=== PATIENT | female | born 1950 | race Caucasian/White ===

== ENCOUNTER → 2018-01-25 | Outpatient (CLI) | payer MEDICARE, BC ==
--- NOTE | 2018-01-25 19:09 | Diagnostic Imaging Report ---
EXAM: VENTILATION PERFUSION LUNG SCAN INDICATION: 67 F with swelling and pain in lower extremities; history of stroke. COMPARISON: None DISCUSSION: Xenon-133 gas 20 mCi was administered via inhalation. Dynamic images of the lungs in the posterior projection were obtained through single breath and washout phases. Distribution of tracer activity is minimally irregular throughout the lungs. Washout is minimally delayed without evidence of air trapping. Perfusion images of the lungs in multiple projections were obtained following intravenous administration of 6.0 mCi of Tc-99m MAA. Distribution of tracer appears physiologic throughout the lungs. There are no segmental perfusion defects of any size. The contours of the lungs are well demarcated. The cardiac silhouette is unremarkable. IMPRESSION: 1. Scan findings represent a VERY LOW probability for acute pulmonary embolic disease based on the PIOPED II criteria. 2. Scan findings are compatible with mild obstructive lung disease. Signed by: Dr. Marija De Leon M.D. on 01/25/2018 7:05 PM
== END ==
LOC: NM 10:22
PROVIDERS: ATTEND Family Medicine
DX: I26.99 Other pulmonary embolism without acute cor pulmonale (principal)
CPT/HCPCS: 78582; A9540; A9558

== ENCOUNTER 2019-06-04 15:45 | Observation (INO) | payer MEDICARE, BC ==
[~2019-06-04] VITALS: Ht 149.9 cm; Wt 56.9 kg
--- OUTSIDE RECORDS SUMMARY | 2019-06-04 15:48 | XMS REPORT ---
Author Author [facility] Address Unknown Phone Unavailable Care Team Providers Care Director Of Resource Development Name Role Phone Hui BERRY Unavailable Unavailable Problems This patient has no known problems. Allergies, Adverse Reactions, Alerts This patient has no known allergies or adverse reactions. Medications This patient has no known medications. Results Test Description Test Time Test Comments Text Results Atomic Results Result Comments VQ LUNG SCAN VENT PERFUSION [place] [id number] Patient Name: GLEN MCCARTHY MR #: [id number] : 1950 Age/Sex: 67/F Req #: [id number] [facility] Physician: Ordered by: ROHIT BERRY MD Report #: [id number] Location: [place] Room/Bed: Procedure: [id number] NM/VQ LUNG SCAN VENT PERFUSION Exam Date: Exam Time: REPORT STATUS: Signed EXAM: VENTILATION PERFUSION LUNG SCAN INDICATION: 67 F with swelling and pain in lower extremities; history of stroke. COMPARISON: None DISCUSSION: Xenon-133 gas 20 mCi was administered via inhalation. Dynamic images of the lungs in the posterior projection were obtained through single breath and washout phases. Distribution of tracer activity is minimally irregular throughout the lungs. Washout is minimally delayed without evidence of air trapping. Perfusion images of the lungs in multiple projections were obtained following intravenous administration of 6.0 mCi of Tc-99m MAA. Distribution of tracer appears physiologic throughout the lungs. There are no segmental perfusion defects of any size. The contours of the lungs are well demarcated. The cardiac silhouette is unremarkable. IMPRESSION: 1. Scan findings represent a VERY LOW probability for acute pulmonary embolic disease based on the PIOPED II criteria. 2. Scan findings are compatible with mild obstructive lung disease. Signed by: Dr. Dustin Solorio M.D. on 01/25/2018 7:05 PM Dictated By: DUSTIN SOLORIO MD 04 Transcribed By: JOHNNY on 01/25/181904 COPY TO: ROHIT BERRY MD
[2019-06-04] MEDS ORDERED: ASPIRIN 81 MG CHEW TAB PO ONE ×2 (16:15→19:00)
[2019-06-04 16:56] LABS: BASOPHILS % 0.6 % (0.0-1.0); EOSINOPHILS # (AUTO) 0.2 (0.0-0.4); EOSINOPHILS % 3.6 % (0.0-6.0); HEMATOCRIT 40.7 % (34.2-44.1); HEMOGLOBIN 13.5 g/dL (12.0-16.0); LYMPHOCYTES # (AUTO) 1.7 (1.0-3.2); LYMPHOCYTES % 31.2 % (18.0-39.1); MEAN CORPUSCULAR HEMOGLOBIN 30.1 pg (28-32); MEAN CORPUSCULAR HGB CONC 33.2 g/dL (31-35); MEAN CORPUSCULAR VOLUME 90.6 fL (81-99); MONOCYTES # (AUTO) 0.5 (0.2-0.8); MONOCYTES % 9.2 % (4.4-11.3); NEUTROPHILS # (AUTO) 2.9 (2.1-6.9); PLATELET COUNT 194 x10e3/uL (140-360); RED BLOOD COUNT 4.49 x10e6/uL (3.6-5.1); RED CELL DISTRIBUTION WIDTH 13.2 % (11.7-14.4)
[2019-06-04 17:04] LABS: INR 1.08; PROTHROMBIN TIME 14.5 seconds (11.9-14.5)
[2019-06-04 17:05] LABS: PARTIAL THROMBOPLASTIN TIME 41.7 seconds (23.8-35.5)
[2019-06-04 17:14] LABS: ALANINE AMINOTRANSFERASE 23 IU/L (0-55); ALBUMIN 4.3 g/dL (3.5-5.0); ALBUMIN/GLOBULIN RATIO 1.4 (0.8-2.0); ALKALINE PHOSPHATASE 60 IU/L (40-150); ANION GAP 14.5 mmol/L (8-16); BLOOD UREA NITROGEN 27 mg/dL (7-26); BUN/CREATININE RATIO 23 (6-25); CALCIUM 9.9 mg/dL (8.4-10.2); CARBON DIOXIDE 27 mmol/L (22-29); CHLORIDE 108 mmol/L (98-107); CREATINE KINASE 309 IU/L (29-168); CREATININE, SERUM 1.19 mg/dL (0.57-1.11); EST GLOMERULAR FILTRATION RATE 45 ML/MIN (60-); GLUCOSE 107 mg/dL (74-118); POTASSIUM 3.5 mmol/L (3.5-5.1); SODIUM 146 mmol/L (136-145)
--- NOTE | 2019-06-04 17:18 | Diagnostic Imaging Report ---
EXAMINATION: CHEST SINGLE (PORTABLE) INDICATION: ^ERMD ORDER ^[id number] ^1600 ^Y COMPARISON: None FINDINGS: AP view TUBES and LINES: None. LUNGS: Lungs are well inflated. Lungs are clear. There is no evidence of pneumonia or pulmonary edema. PLEURA: No pleural effusion or pneumothorax. HEART AND MEDIASTINUM: The cardiomediastinal silhouette is unremarkable. BONES AND SOFT TISSUES: No acute osseous lesion. Soft tissues are unremarkable. UPPER ABDOMEN: No free air under the diaphragm. IMPRESSION: No acute thoracic abnormality. Signed by: Dr. Justo Hall MD on 06/04/2019 5:15 PM
[2019-06-04] MEDS ORDERED: SODIUM CHLORIDE 0.9% 1000ML 1,000 ML IV SCH (17:45)
[2019-06-04] MEDS ORDERED: DEXTROSE 50% SYRINGE 50 ML IV PRN (19:00)
[2019-06-04 19:56] LABS: CREATINE KINASE 257 IU/L (29-168)
[2019-06-04] MEDS: INSULIN REGULAR, HUMAN 100 UNIT/1 ML 3ML VIAL SQ SCH (21:00)
[2019-06-04 21:20] VITALS: BP 130/60
--- NOTE | 2019-06-04 21:20 | NUR ---
patient is a new admit that arrived via stretcher. patient is awake and talking. patient has been assisted into the bed. bed is in the lowest position and call card is within reach. will continue to monitor patient.
[2019-06-04 21:30] VITALS: BP 130/60
[2019-06-05] VITALS (7 sets, daily range): BP systolic 106–154; BP diastolic 56–79
[2019-06-05 04:36] LABS: CREATINE KINASE 236 IU/L (29-168)
[2019-06-05 04:41] LABS: CHOL/HDL RATIO 2.6 (3.0-3.6)
--- NOTE | 2019-06-05 06:57 | NUR ---
report given to day nurse. patient is resting comfortably in bed. bed is in lowest position and call card is within reach.
[2019-06-05] MEDS ORDERED: TEMAZEPAM15 MG PO (07:20)
[2019-06-05] MEDS ORDERED: TOPROL XL100 MG PO (07:20)
[2019-06-05] MEDS ORDERED: OMEPRAZOLE10 MG PO (07:20)
[2019-06-05] MEDS ORDERED: eliquis PO (07:20)
[2019-06-05] MEDS ORDERED: XANAX0.5 MG PO (07:20)
[2019-06-05] MEDS: INSULIN REGULAR, HUMAN 100 UNIT/1 ML 3ML VIAL SQ SCH ×4 (07:30→21:00)
--- NOTE | 2019-06-05 08:00 | NUR ---
Pt in bed with eyes open aox4 and able to verbalize needs. Denies any pain at this time. Received orders for Stress test in the morning. Denies any chest pain at this time.
--- NOTE | 2019-06-05 08:25 | Consultation ---
DATE OF CONSULTATION: 06/05/2019 Cardiology Consultation REQUESTING PHYSICIAN: Dr. Bates. REASON FOR CONSULTATION: Chest pain and arrhythmia. HISTORY OF PRESENT ILLNESS: Ms. Anderson is a 68-year-old with a pertinent past medical history of hypertension, hyperlipidemia, diabetes of which she is currently off medication, stroke from 2017, who reports that she sought urgent services because of "butterfly feeling in her chest for the last few days, approximately 4-5 days. She reports when she is experiencing that feeling in her chest, it takes her breath away." She also endorses some shortness of breath and MEDRANO. She does report a cardiac history stating that she used to see Dr. Ogden years ago and had been referred there for chest pain, however, that pain was usually diaphoretic in nature and heart catheterization was recommended at that time, however, she chose not to pursue that. She denies any shortness of breath at the moment, does endorse this diaphragmatic pain. Denies any fever, chills, abdominal pain, dizziness, syncope, or dysuria. REVIEW OF SYSTEMS: Negative except as mentioned above. PAST MEDICAL HISTORY: As stated above in the history of present illness. PAST SURGICAL HISTORY: Cholecystectomy, hemorrhoidectomy, melanoma removal, hysterectomy secondary to fibroids. SOCIAL HISTORY: She is retired. She is a with children and great-children. She does endorse drinking socially. Denies any illicit drug use or smoking. PHYSICAL EXAMINATION: VITAL SIGNS: Temperature 96.5, pulse 58, respiratory rate 18, blood pressure 108/59, and oxygen saturation 97% on room air. GENERAL: Alert and oriented x3, resting comfortably in bed, does not appear to be in any acute distress. NECK: Supple. No JVD noted. CARDIOVASCULAR: Regular rate and rhythm. No gallops, no murmurs. LUNGS: Clear to auscultation throughout. No wheezing. No rhonchi or crackles. ABDOMEN: Soft, nontender. Normoactive bowel sounds. LOWER EXTREMITY: 2+ pedal pulses. No edema. MEDICATIONS: Not on any cardiac medications at this time. LABORATORY DATA: On admission; WBC 5.37, hemoglobin 13.5, hematocrit 40.7, platelets 194. Sodium 146, potassium 3.5, BUN 27, creatinine 1.19. Creatine kinase 236, CK-MB 0.80, troponin less than 0.001. Triglycerides 79, cholesterol 125, LDL 61, HDL 48. Chest x-ray, no acute thoracic abnormalities. Telemetry, sinus rhythm with infrequent PVCs. IMPRESSION: 1. Symptomatic premature ventricular contractions. 2. Atypical chest pain, appears to be diaphragmatic. 3. Hypertension. 4. History of hyperlipidemia. RECOMMENDATIONS: Obtain echocardiogram. Acute coronary syndrome has been ruled out with negative cardiac enzymes. Continue to monitor on telemetry for now. Will need ischemic workup including a stress test planned for tomorrow given the above risk factors and also report of an abnormal stress test prior. Clinical dehydration noted based on lab work. Oral hydration discussed with the patient. We will continue to follow this patient closely. Thank you for this consultation, Dr. Bates. Dictated by Roxanna Fajardo, ROLANDA MD ADRIENNE MatosV/SHASHA /[id number]
[2019-06-05] MEDS ORDERED: [UNRECOGNIZED DRUG - CODE] PO (09:31)
[2019-06-05] MEDS ORDERED: SIMVASTATIN40 MG PO (09:31)
[2019-06-05] MEDS ORDERED: OMEPRAZOLE40 MG PO (09:31)
[2019-06-05] MEDS ORDERED: TEMAZEPAM 15 MG CAP PO PRN (09:45)
[2019-06-05] MEDS: ALPRAZOLAM 0.5 MG TAB PO PRN (13:36)
[2019-06-05] MEDS: METOPROLOL SUCCINATE 50 MG TAB XL PO SCH (13:42)
[2019-06-05] MEDS: OLMESARTAN 20 MG TAB PO SCH (16:42)
[2019-06-05] MEDS: APIXABAN 5 MG TABLET PO SCH (16:43)
[2019-06-05] MEDS: HYDROCHLOROTHIAZIDE 25 MG TAB PO SCH (16:43)
--- NOTE | 2019-06-05 17:00 | NUR ---
Pt in bed. AOX4 and able to verbalize needs. Denies any pain at this time. Pt has been consented for stress test.
[2019-06-05] MEDS ORDERED: ACETAMINOPHEN 325 MG TAB PO PRN (18:30)
[2019-06-05] MEDS: ACETAMINOPHEN 325 MG TAB PO PRN (19:09)
--- NOTE | 2019-06-05 19:09 | NUR ---
Beside report walking round complete. Pt resting in bed and in no apparent distress. All safety measures ensured and pt call card near. Pt encouraged to use call card for assistance.
[2019-06-05] MEDS: SIMVASTATIN 40 MG TAB PO SCH (21:17)
[2019-06-06] VITALS (8 sets, daily range): BP systolic 82–145; BP diastolic 45–74
[2019-06-06] MEDS: PANTOPRAZOLE SOD 40 MG TABEC PO SCH (05:14)
--- NOTE | 2019-06-06 07:00 | NUR ---
received am report from RN. morning rounds done, pt is awake in bed, no s/s of distress. pt is complaining of nausea. pt has been NPO since midnight , with no beta blockers and no caffeine. scheduled stress test today
[2019-06-06] MEDS: INSULIN REGULAR, HUMAN 100 UNIT/1 ML 3ML VIAL SQ SCH ×4 (07:30→21:00)
[2019-06-06] MEDS: OLMESARTAN 20 MG TAB PO SCH ×2 (08:05→17:00)
[2019-06-06] MEDS: APIXABAN 5 MG TABLET PO SCH ×2 (08:06→17:00)
[2019-06-06] MEDS: HYDROCHLOROTHIAZIDE 25 MG TAB PO SCH ×2 (08:06→17:00)
[2019-06-06] MEDS: METOPROLOL SUCCINATE 50 MG TAB XL PO SCH (08:06)
[2019-06-06] MEDS ORDERED: METOPROLOL SUCCINATE 50 MG TAB XL PO SCH (09:00)
[2019-06-06] MEDS ORDERED: ONDANSETRON HCL INJ 2MG/ML 2ML 2 MG/ML VIAL IV PRN (09:30)
--- NOTE | 2019-06-06 10:19 | NUR ---
pt is transferring to room 188, gave report to NANCY RN. pt is currently having stress test done, then will go to room 188
--- NOTE | 2019-06-06 11:30 | Progress Note ---
DATE: 06/06/2019 Cardiology Progress Note SUBJECTIVE: No major events overnight. Stress test today. OBJECTIVE: VITAL SIGNS: Temperature afebrile, pulse 55, respiratory rate 16, blood pressure 133/70, saturating 98% on room air. GENERAL: Middle-aged female, in no acute distress. CARDIOVASCULAR: Regular rate and rhythm. No murmurs, rubs, or gallops. LUNGS: Clear to auscultation bilaterally. ABDOMEN: Soft, nontender, nondistended. NEURO AND PSYCH: Alert and oriented to person, place, and time. Normal affect. INPATIENT MEDICATIONS: Reviewed. LABORATORY DATA: Reviewed. TELEMETRY DATA: Reviewed, shows normal sinus rhythm with frequent PVCs. ASSESSMENT: 1. Symptomatic premature ventricular contractions. 2. Atypical chest pain. 3. Hypertension. 4. History of stroke. 5. History of hyperlipidemia. RECOMMENDATION: Echocardiogram shows normal LV function. The patient is already ruled out for acute coronary syndrome with serial troponins. Stress test pending today. Further recommendations upon results. Thank you for this consult. We will continue to follow. MD VIVI Lutz/SHASHA /[id number]
--- NOTE | 2019-06-06 12:00 | NUR ---
pt's family member states that pt had teeth wrapped in a napkin inside a styrofoam cup. after the pt was transferred to [facility], the room was cleaned and the cup was thrown away by housekeeping. staff tried locating the trash from the room but it had already been sent to the compactor.
--- NOTE | 2019-06-06 12:18 | NUR ---
RCD PT AFTER PROCEDURE PT IS ALERT AND ORIENTED VITALS CHECKED PT RESTING ON BED FAMILY AT BED SIDE PT COMPLAINT SHE LOST THE DENTURES FROM ROOM 108 TALKED TO THE NURSE IN 108 SHE SAID SHE DONT KNOW ABOUT IT NOTIFIED CHARGE NURSE ALSO
[2019-06-06] MEDS: ALPRAZOLAM 0.5 MG TAB PO PRN ×2 (14:30→20:24)
[2019-06-06] MEDS: ACETAMINOPHEN 325 MG TAB PO PRN (14:30)
--- NOTE | 2019-06-06 18:44 | NUR ---
PT RESTING ON BED BED SIDE REPORT GIVEN TO ONCOMING NURSE
[2019-06-06] MEDS: SIMVASTATIN 40 MG TAB PO SCH (21:07)
[2019-06-06] MEDS ORDERED: SODIUM CHLORIDE 0.9% 500ML 500 ML IV ONE (23:45)
[2019-06-07] MEDS: ACETAMINOPHEN 325 MG TAB PO PRN (01:49)
[2019-06-07 03:10] VITALS: BP 96/63
[2019-06-07 04:00] VITALS: BP 97/54
--- NOTE | 2019-06-07 04:20 | NUR ---
Patient arrived to unit via bed from [facility]. Patient A&Ox3. Oriented to room and environment. Call light within reach. Will continue to monitor.
[2019-06-07] MEDS: PANTOPRAZOLE SOD 40 MG TABEC PO SCH (06:15)
[2019-06-07] MEDS: INSULIN REGULAR, HUMAN 100 UNIT/1 ML 3ML VIAL SQ SCH ×2 (07:30→11:30)
[2019-06-07 08:32] VITALS: BP 108/57
[2019-06-07] MEDS: HYDROCHLOROTHIAZIDE 25 MG TAB PO SCH (09:00)
[2019-06-07] MEDS: METOPROLOL SUCCINATE 50 MG TAB XL PO SCH ×2 (09:00→14:30)
[2019-06-07] MEDS: OLMESARTAN 20 MG TAB PO SCH (09:00)
[2019-06-07] MEDS: APIXABAN 5 MG TABLET PO SCH (09:08)
[2019-06-07 09:10] VITALS: BP 108/57
--- NOTE | 2019-06-07 10:00 | NUR ---
SPOKE WITH MD IVY REGARDING STRESS TEST RESULTS STATES STRESS TEST IS NEGATIVE WILL REASSESS BP FOR LATER TODAY, IF IMPROVES PT CAN BE CLEARED FROM CARDIAC STANDPOINT
[2019-06-07] MEDS ORDERED: SODIUM CHLORIDE 0.9% 500ML 500 ML IV ONE (11:35)
[2019-06-07 12:00] VITALS: BP 139/74
--- NOTE | 2019-06-07 12:23 | NUR ---
PAGED MD IVY FOR NEW BP READINGS AND ORDERS ON DC . AWAITING FOR CALL BACK
--- NOTE | 2019-06-07 12:26 | Myoview Stress Test ---
DATE OF STUDY: 06/05/2019 07:38:00 Stress Test - Treadmill ONLY PROCEDURE TITLE: Rest/stress single isotope SPECT imaging with pharmacologic stress and gated SPECT imaging. PROCEDURE IN DETAIL: Pharmacologic stress testing was performed with regadenoson per protocol. The heart rate was 70 beats per minute at rest and increased to 108 beats per minute during the regadenoson infusion. The rest blood pressure was 159/82 and decreased to 134/73 mmHg, which is a normal response. The resting electrocardiogram demonstrated normal sinus rhythm. There was diffuse ST-segment depression noted during stress and recovery. Myocardial perfusion imaging was performed at rest following the injection of 11 mCi of tetrofosmin. At peak pharmacologic effect, the patient was injected with 33 mCi of tetrofosmin. Gated post-stress tomographic imaging was performed. FINDINGS: The overall quality of study is fair. Left ventricular cavity is noted to be normal size on the rest and stress studies. SPECT images demonstrate homogeneous tracer distribution throughout the myocardium. Gated SPECT imaging reveals normal myocardial thickening and wall motion. The left ventricular ejection fraction is calculated to be greater than 70%. IMPRESSION: Myocardial perfusion imaging is normal. Overall, left ventricular systolic function was normal without regional wall motion abnormalities. False positive EKG pharmacologic stress test in light of normal myocardial perfusion imaging. Tona Thomas MD ABS/MODL /[id number]
--- NOTE | 2019-06-07 14:12 | Progress Note ---
DATE: 06/07/2019 Cardiology Progress Note SUBJECTIVE: The patient denies chest pain, but she is complaining of cough. OBJECTIVE: VITAL SIGNS: Temperature 97.2 degrees, pulse 62, respiratory rate 18, blood pressure 108/57, and oxygen saturation 96% on room air. GENERAL: Awake, alert, no acute distress. LUNGS: Clear to auscultation bilaterally. No wheezes or crackles. CARDIOVASCULAR: Normal rate, regular rhythm. No murmur. Normal S1, S2. ABDOMEN: Soft, nontender. EXTREMITIES: No edema. CARDIAC MEDICATIONS: 1. Apixaban 5 mg p.o. b.i.d. 2. Simvastatin 40 mg p.o. at bedtime. 3. Metoprolol succinate 100 mg p.o. daily. 4. Lovastatin 20 mg p.o. b.i.d. LABORATORY DATA: None today. TELEMETRY: Normal sinus rhythm. IMPRESSION: 1. Symptomatic premature ventricular contractions. 2. Atypical chest pain. 3. Hypertension. 4. History of stroke. 5. History of hyperlipidemia. RECOMMENDATIONS: Echocardiogram showed normal LV systolic function. The patient ruled out for myocardial infarction with serial cardiac biomarkers. Nuclear stress test demonstrated normal perfusion. Given hypotension, discontinue olmesartan and hydrochlorothiazide. Continue metoprolol succinate due to her symptomatic PVCs. Monitor patient on telemetry while admitted. No further cardiac evaluation is indicated at this time. Thank you for this consult. We will continue to follow. Tona Thomas MD ABS/MODL /[id number]
--- NOTE | 2019-06-07 14:15 | NUR ---
SPOKE WITH MD IVY AND MD SÁNCHEZ WHO CLEARED DC FOR PT
--- NOTE | 2019-06-07 14:39 | NUR ---
DISCHARGE INSTRUCTIONS GIVEN. PT AWARE OF FOLLOW UP VISIT UNDERSTANDS THE NEED TO HOLD ON COMBINATION OF OLMESARTAN/HCTZ UNTIL FOLLOW UP VISIT WITH IV DC PRESSURE DRESSING APPLIED AND TAPED PT IS NOW OFF UNIT TO HOME
--- NOTE | 2019-06-08 06:26 | Discharge Summary ---
DISCHARGE DIAGNOSES: 1. Premature ventricular contractions. 2. Hypertension. 3. Chest pain, rule out myocardial infarction. HISTORY OF PRESENT ILLNESS AND HOSPITAL COURSE: See hospital chart for full details since this discharge summary is not all encompassing. The patient is a lady, who presented with some mild chest pain that was associated with some PVCs. She was brought in, she ruled out for MA. She was seen by Cardiology, who due to her risk factor, did an echocardiogram that showed normal LV function and a stress test was done that was negative. At the time of discharge, the patient was feeling well. She had no new complaints. She was wanting to go home, so she was discharged home to follow up with her primary care physician in 1 to 2 weeks as well as with Cardiology in 1 to 2 weeks. Please see hospital chart for full details. MD SHAHIDA Jordan/SHASHA /[id number]
== END 2019-06-07 14:35 | disposition home or self-care (01) ==
LOC: ER 15:45 → ERHOLD 19:06 → MED/SURG 21:09 → IMCU 06-06 10:10 → MED/SURG 06-07 04:35
PROVIDERS: ADMIT Internal Medicine; ATTEND Internal Medicine
DX: I49.3 Ventricular premature depolarization (principal); R07.89 Other chest pain; Z88.0 Allergy status to penicillin; Z82.49 Family history of ischemic heart disease and other diseases of the circulatory system; Z86.73 Personal history of transient ischemic attack (TIA), and cerebral infarction without residual deficits; E78.5 Hyperlipidemia, unspecified; M19.90 Unspecified osteoarthritis, unspecified site; E11.22 Type 2 diabetes mellitus with diabetic chronic kidney disease; I12.9 Hypertensive chronic kidney disease with stage 1 through stage 4 chronic kidney disease, or unspecified chronic kidney disease; N18.3 Chronic kidney disease, stage 3 (moderate); K21.9 Gastro-esophageal reflux disease without esophagitis
CPT/HCPCS: 36415 ×4; 71045; 78452; 80053; 80061; 82550 ×2; 82553 ×2; 82948 ×4; 83735; 83880; 84484 ×2; 85025; 85610; 85730; 93005; 93017; 93306; 99284; A9502; G0378 ×4; J2405; J7030 ×2; J7040 ×2; S0164